=== PATIENT | male | born 1990 | race Caucasian/White ===

== ENCOUNTER 2017-01-10 13:02 | Emergency (ER) | payer SELFPAY ==
[2017-01-10 14:23] LABS: Basophils % (Auto) 0.6 % (0.0-1.8); Eosinophils % (Auto) 3.6 % (0.0-4.3); Hematocrit 38.6 % (35.5-45.6); Hemoglobin 13.4 gm/dl (11.8-15.2); Mean Corpuscular HGB Conc 35 % (32-34); Mean Corpuscular Hemoglobin 30 pg (28-32); Mean Corpuscular Volume 87 fl (84-94); Platelet Count 257 K/mm3 (140-440); Red Blood Count 4.42 M/mm3 (3.65-5.03); Red Cell Distribution Width 13.6 % (13.2-15.2); White Blood Count 9.7 K/mm3 (4.5-11.0)
--- NOTE | 2017-01-10 14:25 | Emergency Department Report ---
HPI - General Chief Complaint: Chest Pain Time Seen by Provider: 01/10/17 14:13 - HPI HPI: A 26-year-old male presents to ED with severe epigastric pain status post drinking 15 beers yesterday. He vomited yesterday after drinking his 15th beer, felt better woke up this morning drank another beer but then started to feel bad so he presented to ED. No fever no shortness of breath, chest is nontender. ED Past Medical Hx - Past Medical History Hx Hypertension: Yes Additional medical history: increased uric acid - Surgical History Past Surgical History?: No - Social History Smoking Status: Current Every Day Smoker Substance Use Type: Alcohol ED Review of Systems ROS: Stated complaint: CHEST PAIN Other details as noted in HPI Physical Exam - Physical Exam Vital Signs: Vital Signs 01/10/17 01/10/17 13:37 14:03 Temperature 99.4 F 99.4 F Pulse Rate 90 90 Respiratory 12 12 Rate Blood Pressure 149/81 Blood Pressure 149/81 [Right] O2 Sat by Pulse 100 100 Oximetry ED Course Vital Signs 01/10/17 01/10/17 13:37 14:03 Temperature 99.4 F 99.4 F Pulse Rate 90 90 Respiratory 12 12 Rate Blood Pressure 149/81 Blood Pressure 149/81 [Right] O2 Sat by Pulse 100 100 Oximetry ED Medical Decision Making - Lab Data Result diagrams: 01/10/17 14:02 01/10/17 14:02 Critical care attestation.: If time is entered above; I have spent that time in minutes in the direct care of this critically ill patient, excluding procedure time. ED Disposition Condition: Stable Referrals: PRIMARY CARE, [Primary Care Provider] - 3-5 Days
[2017-01-10] MEDS ORDERED: NACL 0.9% 1000 ML 1,000 ML IV ONE (14:26)
[2017-01-10] MEDS ORDERED: PEPCID IV ONE (14:27)
[2017-01-10] MEDS ORDERED: ALUM-MAG HYDROX-SIMETH 200-200-20MG/5ML PO ONE (14:27)
[2017-01-10] MEDS ORDERED: ZOFRAN IV ONE (14:27)
[2017-01-10 14:37] LABS: Alanine Aminotransferase 14 units/L (7-56); Albumin 4.3 g/dL (3.9-5); Albumin/Globulin Ratio 1.7 %; Alkaline Phosphatase 49 units/L (35-129); Anion Gap 17 mmol/L; BUN/Creatinine Ratio 20; Blood Urea Nitrogen 10 mg/dL (9-20); Calcium 8.8 mg/dL (8.4-10.2); Carbon Dioxide 26 mmol/L (22-30); Chloride 102.5 mmol/L (98-107); Glucose 107 mg/dL (75-100); Potassium 3.8 mmol/L (3.6-5.0); Sodium 142 mmol/L (137-145); Total Protein 6.9 g/dL (6.3-8.2)
--- NOTE | 2017-01-10 15:25 | XRay Report ---
CHEST ONE VIEW INDICATION: Chest pain. COMPARISON: None similar at this institution. FINDINGS: Portable, single, frontal chest radiograph demonstrates normal cardiomediastinal silhouette. Clear lungs. Unremarkable bones. Extrinsic EKG leads. CONCLUSION: No acute disease in the chest. Thank you for the opportunity to participate in this patient's care.
[2017-01-10 16:23] VITALS: BP 133/73
== END 2017-01-10 16:26 | disposition home or self-care (01) ==
LOC: ED 13:02
DX: R10.13 Epigastric pain (principal); R07.9 Chest pain, unspecified; I10 Essential (primary) hypertension; F17.200 Nicotine dependence, unspecified, uncomplicated
CPT/HCPCS: 36415; 71010; 80053; 83690; 84484; 85025; 93005; 93010; 96361; 96374; 96375; 99285; J2405; J7030